=== PATIENT | female | born 1995 | race Caucasian/White ===

== ENCOUNTER → 2021-08-29 10:21 | Outpatient (CLI) | payer OTHER, SELFPAY ==
--- NOTE | 2021-08-29 10:23 | DI.US.S_ITS ---
PROCEDURE: US PELVIC COMPLETE INDICATIONS: LLQ PAIN TECHNIQUE: Real-time scanning was performed of the pelvic organs, with image documentation. Additional endovaginal scanning was necessary due to incomplete visualization of the adnexal and endometrial structures by transabdominal scanning. COMPARISON: [facility], US, US ABDOMEN COMPLETE, 08/29/2021, 10:27. FINDINGS: Uterus: Uterus is retroverted and normal in size at 7.2 x 4.1 x 5.3 cm. The myometrium is homogeneous. The endometrium measures 8 mm combined thickness. Ovaries: The right ovary measures 4.6 x 1.8 x 2.6 cm. The left ovary measures 3.9 x 2.5 x 2.2 cm. The ovaries have a normal sonographic appearance. More than 12 follicles can be seen involving each ovary. No adnexal masses are seen. Normal appearing arterial waveforms are confirmed to each ovary. Other: No pathologic free abdominal or pelvic fluid. No focal abnormality of the left lower quadrant can be seen. IMPRESSION: More than 12 follicles can be seen involving each ovary, which is consistent with polycystic ovarian syndrome. We strive to produce accurate, complete, and clear reports of imaging services. To assist us in improving patient care, this report was composed using standard report templates and voice recognition software. Therefore, it may contain abnormal punctuation, insertions and/or omissions. Occasional wrong-word or sound-alike substitutions may occur. Though we review the report and make efforts to correct it, we do recommend that the report be read carefully in proper context to recognize any text inaccuracies. Dictated by: William Vázquez M.D. on 08/29/2021 at 12:10 Approved by: William Vázquez M.D. on 08/29/2021 at 12:12
--- NOTE | 2021-08-29 10:23 | DI.US.S_ITS ---
PROCEDURE: US ABDOMEN COMPLETE INDICATIONS: LLQ PAIN; HERNIA VS GASTROINTESTINAL TECHNIQUE: Real-time scanning was performed of the abdominal and retroperitoneal organs, with image documentation. COMPARISON: [facility], US, US PELVIC COMPLETE, 08/29/2021, 10:45. FINDINGS: Liver: Liver is normal in size and homogeneous in echotexture. Gallbladder: Nondilated. No stones or sludge. Normal gallbladder wall thickness. No pericholecystic fluid. Negative sonographic Valdivia's sign. Biliary ducts: Intrahepatic bile ducts are non-dilated. Extrahepatic bile duct caliber measures 5 mm. Normal is 6-7 mm or less in diameter, or 10 mm or less post-cholecystectomy. Pancreas: Visualized portions of the pancreas are sonographically normal. Spleen: Spleen is normal in size and homogeneous in echotexture. Kidneys: Kidneys are normal in size and echotexture. Right kidney measures 13 cm long; left kidney measures 12.9 cm long. No hydronephrosis or nephrolithiasis. No solid masses. Aorta: Visualized aorta is normal in caliber at less than 3 cm. Iliacs: Proximal common iliac arteries are normal in caliber at less than 2.5 cm. IVC: Intrahepatic inferior vena cava is patent. Miscellaneous: No free abdominal fluid. IMPRESSION: 1. No acute cholecystitis. No gallstones. 2. No hydronephrosis. Please see separately dictated pelvic ultrasound. Dictated by: Darwin Noland M.D. on 08/29/2021 at 12:21 Approved by: Darwin Noland M.D. on 08/29/2021 at 12:23
== END ==
PROVIDERS: PCP Registered Nurse Diabetes Educator; Referring Provider Registered Nurse Diabetes Educator; Visit Provider Registered Nurse Diabetes Educator
DX: R10.32 Left lower quadrant pain (principal)
CPT/HCPCS: 76700; 76830; 76856

== ENCOUNTER 2022-01-02 17:06 | Emergency (ER) | payer OTHER, SELFPAY ==
[2022-01-02 17:18] VITALS: BP 154/100; PULSE 104; RESP 18; TEMP 37.1; O2SAT 97; BMI 26.4
--- NOTE | 2022-01-02 17:25 | DI.US.S_ITS ---
PROCEDURE: US OB <= 14 WEEKS FETUS INDICATIONS: 4 weeks preg, vaginal bleeding TECHNIQUE: Real-time scanning was performed of the fetus and maternal pelvic organs, with image documentation. Endovaginal scanning was also performed to better visualize the fetus and maternal ovaries. COMPARISON: None. FINDINGS: Retroverted uterus measures 9.2 x 4.3 x 4.7 cm. Endometrial thickness is 8.1 mm. No evidence of intrauterine . Right and left ovaries measure 3.5 x 2.0 x 2.5 cm and 3.2 x 1.4 x 1.6 cm respectively. There is a hypoechoic structure in the right ovary measuring 1.8 x 1.7 cm with peripheral vascularity IMPRESSION: 1. No evidence of intrauterine . Differential possibilities include normal early , missed and nonvisualized ectopic . 2. Probable left ovarian hemorrhagic cyst, 1.8 cm Approved by: Richard Nagy M.D. on 01/02/2022 at 17:44
--- NOTE | 2022-01-02 17:38 | ED.FEMALEGU ---
HPI - Female Genitourinary <EDNA Jiménez - Last Filed: 01/02/22 19:04> General Chief complaint: Vaginal Bleeding Stated complaint: Unsure if miscarriage, ~4 weeks Time Seen by Provider: 01/02/22 17:12 Source: patient Mode of arrival: Ambulatory History of Present Illness HPI Narrative: 26-year-old female presents to the emergency department with vaginal bleeding and uterine cramps x1 day. Patient reports that she was having lower abdominal and lower back cramping last evening and started having vaginal bleeding with clots this morning. Patient last menstrual was November 24, 2021, began ovulating around December 15 and reports breast tenderness for the following 10 days. This is her 1st . Patient completed multiple home tests over the last 2 weeks along with this morning, and all positive. The patient is tearful that her may be ending. is at the bedside. Related Data Home Medications Medication Instructions Recorded Confirmed cetirizine 10 mg capsule 10 mg PO DAILY 04/26/20 09/13/21 cholecalciferol (vitamin D3) 125 125 mcg PO DAILY 04/26/20 07/18/21 mcg (5,000 unit) capsule Allergies Allergy/AdvReac Type Severity Reaction Status Date / Time venom-wasp Allergy Intermediate swelling Verified 01/02/22 17:24 Review of Systems <EDNA Jiménez - Last Filed: 01/02/22 19:04> Review of Systems Narrative: Narrative: GENERAL: Denies chills, fatigue, fever, sweats. See HPI HEENT: Denies sinus pain, ear pain, sore throat, difficulty swallowing, dizziness. RESPIRATORY: Denies dyspnea, cough, wheezing, sputum. CARDIOVASCULAR: Denies chest pain, palpitations, edema. GASTROINTESTINAL: Denies nausea, vomiting, diarrhea, constipation. Endorses lower abdominal and lower back cramping. Endorses vaginal bleeding with clots. : Denies dysuria, frequency, incontinence, hematuria, urinary retention, flank pain. MSK: Denies weakness, joint pain, or bony pain. SKIN: Denies rash, skin lesions, or pruritis. NEUROLOGIC: Denies weakness, dizziness, headache, numbness, confusion. PSYCHIATRIC: No concerning psychosocial issues. Patient History <EDNA Jiménez Last Filed: 01/02/22 19:04> Medical History Chronic GERD Migraine with aura alcohol intake frequency: holidays/special occasions only Substance Use Type: does not use Exam <EDNA Jiménez - Last Filed: 01/02/22 19:04> Narrative Exam Narrative: Exam Narrative: GENERAL: This is a well-nourished, well-developed patient, in no acute distress HEAD: Atraumatic. Normocephalic. EYES: Pupils equal round and reactive. Extraocular motions intact. No scleral icterus, injection or drainage. ENT: Nose without bleeding, purulent drainage. Throat without erythema, tonsillar hypertrophy or exudate. Airway patent. NECK: Trachea midline. No JVD or lymphadenopathy. Nontender. CARDIOVASCULAR: Regular rate and rhythm without murmurs, peripheral pulses intact, cap refill <2 sec. RESPIRATORY: Breath sounds equal and clear bilaterally. No wheezes, rales, or rhonchi. No cough. No increased respiratory effort. No accessory muscle use. GASTROINTESTINAL: Abdomen soft, non-tender, nondistended without guarding or rebound. No suprapubic pain. No active cramping. No adnexal tenderness. MSK: Moves all extremities. Normal range of motion, no clubbing or edema. Neurovascularly intact. NEURO: A&O x 3. SKIN: Warm, dry, no rashes or lesions noted. Initial Vital Signs Initial Vital Signs: Vital Signs Temperature 98.7 F 01/02/22 17:18 Pulse Rate 104 H 01/02/22 17:18 Respiratory Rate 18 01/02/22 17:18 Blood Pressure 154/100 H 01/02/22 17:18 Pulse Oximetry 97 01/02/22 17:18 Oxygen Delivery Method 01/02/22 17:18 Reviewed. Attribute blood pressure and heart rate to anxiety related to possible miscarriage. <Sadia Carvalho DO - Last Filed: 01/04/22 09:52> Initial Vital Signs Initial Vital Signs: Vital Signs Temperature 98.7 F 01/02/22 17:18 Pulse Rate 104 H 01/02/22 17:18 Respiratory Rate 18 01/02/22 17:18 Blood Pressure 154/100 H 01/02/22 17:18 Pulse Oximetry 97 01/02/22 17:18 Oxygen Delivery Method 01/02/22 17:18 Course <EDNA Jiménez - Last Filed: 01/02/22 19:04> Orders Ordered: ED Orders 01/02/22 17:25 US OB <= 14 weeks fetus Stat 01/02/22 17:34 ABO RH Type Stat Complete Blood Count AUTO DIFF Stat Comprehensive Metabolic Panel Stat HCG Quantitative /Beta subunit Stat Vital Signs Vital signs: Vital Signs - 8 hr 01/02/22 17:18 Temperature 98.7 F Pulse Rate 104 H Respiratory Rate 18 Blood Pressure 154/100 H Pulse Oximetry 97 Oxygen Delivery Method Room Air <Sadia Carvalho DO - Last Filed: 01/04/22 09:52> Orders Ordered: ED Orders 01/02/22 17:25 US OB <= 14 weeks fetus Stat 01/02/22 17:34 ABO RH Type Stat Complete Blood Count AUTO DIFF Stat Comprehensive Metabolic Panel Stat HCG Quantitative /Beta subunit Stat Vital Signs Vital signs: Vital Signs - 8 hr 01/02/22 17:18 Temperature 98.7 F Pulse Rate 104 H Respiratory Rate 18 Blood Pressure 154/100 H Pulse Oximetry 97 Oxygen Delivery Method Room Air MDM - Female Genitourinary <EDNA Jiménez - Last Filed: 01/02/22 19:04> Differential Diagnosis Differential diagnosis: Likely other (Threatened ) Lab Data Result diagrams: 01/02/22 17:34 01/02/22 17:34 Labs: Lab Results 01/02/22 01/02/22 01/02/22 Range/Units 17:34 17:34 17:34 WBC 9.6 (4.5-11.0) X10^3/uL RBC 4.77 (4.0-5.2) X10^6/uL Hgb 14.5 (12.0-16.0) g/dL Hct 42.3 (36-46) % MCV 88.8 (80-100) fL MCH 30.3 (26-34) PG MCHC 34.2 (30-36) % RDW 13.1 (11.6-14.8) % Plt Count 265 (150-400) X10^3/uL Neut % (Auto) 65.9 (50-75) % Lymph % (Auto) 25.9 (25-40) % Morrill % (Auto) 6.3 (3-14) % Eos % (Auto) 0.9 L (2-4) % Baso % (Auto) 1.0 (0-2) % Neut # (Auto) 6400 (4353-5246) /uL Lymph # (Auto) 2500 (3346-0955) /uL Morrill # (Auto) 600 (0-900) /uL Eos # (Auto) 100 (0-450) /uL Baso # (Auto) 100 (0-100) /uL Sodium 139 (137-145) mmol/L Potassium 4.3 (3.4-5.1) mmol/L Chloride 104 (98-107) mmol/L Carbon Dioxide 27 (22-32) mmol/L BUN 12 (7-17) mg/dL Creatinine 0.71 (0.52-1.04) mg/dL Estimated GFR > 60 (>60) mL/min BUN/Creatinine Ratio 16.9 (6-22) Glucose 93 (70-100) mg/dL Calcium 9.2 (8.4-10.2) mg/dL Total Bilirubin 0.8 (0.2-1.3) mg/dL AST 40 H (14-36) IU/L ALT 16 (<35) IU/L Alkaline Phosphatase 51 (38-126) U/L Total Protein 8.8 H (6.3-8.2) g/dL Albumin 5.0 (3.5-5.0) g/dL Globulin 3.8 (1.7-4.1) g/dL Albumin/Globulin Ratio 1.3 (1.0-2.8) HCG, Quant 3.4 mIU/mL Blood Type O Positive Imaging Data US - OB: Radiologist's Impression: [address] [address] Ultrasound Report Signed Patient: Rowdy Clayton MR#: [id number] : 1995 Acct:[id number] Age/Sex: 26 / F Date of Service: 01/02/22 Loc: ED Accession Number: [id number] ?? Procedure: US OB <= 14 weeks fetus Ordering Provider: Eyad Connor PROCEDURE:? US OB <= 14 WEEKS FETUS ? INDICATIONS:? 4 weeks preg, vaginal bleeding ? TECHNIQUE:? Real-time scanning was performed of the fetus and maternal pelvic organs, with image documentation.? Endovaginal scanning was also performed to better visualize the fetus and maternal ovaries.? ? COMPARISON:? None. ? FINDINGS:? ? Retroverted uterus measures 9.2 x 4.3 x 4.7 cm.? Endometrial thickness is 8.1 mm.? No evidence of intrauterine . ? Right and left ovaries measure 3.5 x 2.0 x 2.5 cm and 3.2 x 1.4 x 1.6 cm respectively.? There is a hypoechoic structure in the right ovary measuring 1.8 x 1.7 cm with peripheral vascularity ? IMPRESSION:? ? 1. No evidence of intrauterine .? Differential possibilities include normal early , missed and nonvisualized ectopic . ? 2. Probable left ovarian hemorrhagic cyst, 1.8 cm ? Approved by: Richard Nagy M.D. on 01/02/2022 at 17:44? MDM Narrative Medical decision making narrative: 26-year-old female that presents to the emergency department with threatened . HCG quant was 3.4. Ultrasound reveals no intrauterine . Informed patient and of the results and were received well. Instructed patient to follow up with her family doctor tomorrow for possible repeat HCG quant ensure levels trending downwards. Discussed plan of care with patient and , who were agreeable with course of action. <Sadia Carvalho, DO - Last Filed: 01/04/22 09:52> Lab Data Labs: Lab Results 01/02/22 01/02/22 01/02/22 Range/Units 17:34 17:34 17:34 WBC 9.6 (4.5-11.0) X10^3/uL RBC 4.77 (4.0-5.2) X10^6/uL Hgb 14.5 (12.0-16.0) g/dL Hct 42.3 (36-46) % MCV 88.8 (80-100) fL MCH 30.3 (26-34) PG MCHC 34.2 (30-36) % RDW 13.1 (11.6-14.8) % Plt Count 265 (150-400) X10^3/uL Neut % (Auto) 65.9 (50-75) % Lymph % (Auto) 25.9 (25-40) % Morrill % (Auto) 6.3 (3-14) % Eos % (Auto) 0.9 L (2-4) % Baso % (Auto) 1.0 (0-2) % Neut # (Auto) 6400 (7970-8266) /uL Lymph # (Auto) 2500 (0302-0000) /uL Morrill # (Auto) 600 (0-900) /uL Eos # (Auto) 100 (0-450) /uL Baso # (Auto) 100 (0-100) /uL Sodium 139 (137-145) mmol/L Potassium 4.3 (3.4-5.1) mmol/L Chloride 104 (98-107) mmol/L Carbon Dioxide 27 (22-32) mmol/L BUN 12 (7-17) mg/dL Creatinine 0.71 (0.52-1.04) mg/dL Estimated GFR > 60 (>60) mL/min BUN/Creatinine Ratio 16.9 (6-22) Glucose 93 (70-100) mg/dL Calcium 9.2 (8.4-10.2) mg/dL Total Bilirubin 0.8 (0.2-1.3) mg/dL AST 40 H (14-36) IU/L ALT 16 (<35) IU/L Alkaline Phosphatase 51 (38-126) U/L Total Protein 8.8 H (6.3-8.2) g/dL Albumin 5.0 (3.5-5.0) g/dL Globulin 3.8 (1.7-4.1) g/dL Albumin/Globulin Ratio 1.3 (1.0-2.8) HCG, Quant 3.4 mIU/mL Blood Type O Positive Discharge Plan Departure Patient Disposition: Home Clinical Impression: Vaginal bleeding, Miscarriage Instructions: DI for Miscarriage Activity Restrictions/Additional Instructions: *You have been diagnosed with vaginal bleeding/miscarriage. Your ultrasound reveals no intrauterine and your blood test reveals a hCG quant level of 3.4, (less than 5 is considered not ). You may take Tylenol or ibuprofen as needed for any further cramping. Please follow-up with your family doctor tomorrow to schedule a repeat hCG quant. *What to do: *Please continue to take your regular medications as directed. [ ] New medication prescriptions sent to your pharmacy: [ ] [ ] New medication written as a paper prescription [x ] No new medications given *Please follow up with your primary care provider in 2-3 days, call for an appointment. Let them know you were seen in the Emergency Department and that we ask that you be seen in follow up. We will electronically transmit a record of today's note if your PCP is in our system *If you do not have a primary care provider please contact the [facility] Resource line at [phone]. They will ask some questions about your medical history and help get you set up with a doctor in the community. ? Return to ER if you should have any new, worsening or concerning symptoms, such as worsening pain, severe headache, confusion, chest pain, difficulty breathing, fever greater than 101 F, shaking chills, persistent vomiting to the point that you cannot drink fluids, or other new or worsening symptoms. Prescriptions: No Action cetirizine 10 mg capsule 10 mg PO DAILY cholecalciferol (vitamin D3) 125 mcg (5,000 unit) capsule 125 mcg PO DAILY Referrals: Gumaro Goldsmith ARNP [Primary Care Provider] - Visit Report Forms: Patient Portal/API <Sadia Carvalho DO - Last Filed: 01/04/22 09:52> Cosign ED Attending Winsomeature Attestation: I was immediately available in the department for consultation. Documentation has been reviewed. I agree with assessment and plan.
[2022-01-02 17:52] LABS: Add Manual Diff / Slide Review NO; Basophils Absolute Auto 100 /uL (0-100); Eosinophils Absolute Auto 100 /uL (0-450); Eosinophils Percent Auto 0.9 % (2-4); Hematocrit 42.3 % (36-46); Hemoglobin 14.5 g/dL (12.0-16.0); Lymphocytes Absolute Auto 2500 /uL (1100-4500); Lymphocytes Percent Auto 25.9 % (25-40); Mean Corpuscular HGB Conc 34.2 % (30-36); Mean Corpuscular Hemoglobin 30.3 PG (26-34); Mean Corpuscular Volume 88.8 fL (80-100); Monocytes Absolute Auto 600 /uL (0-900); Monocytes Percent Auto 6.3 % (3-14); Neutrophils Absolute Auto 6400 /uL (1500-7000); Neutrophils Percent Auto 65.9 % (50-75); Platelet Count 265 X10^3/uL (150-400); Red Blood Cell Count 4.77 X10^6/uL (4.0-5.2); Red Cell Distribution Width 13.1 % (11.6-14.8); White Blood Cell Count 9.6 X10^3/uL (4.5-11.0)
[2022-01-02 17:57] LABS: Alanine Aminotransferase 16 IU/L (<35); Albumin Globulin Ratio 1.3 (1.0-2.8); Alkaline Phosphatase 51 U/L (38-126); Aspartate Aminotransferase 40 IU/L (14-36); BUN Creatinine Ratio 16.9 (6-22); Bilirubin Total 0.8 mg/dL (0.2-1.3); Blood Urea Nitrogen 12 mg/dL (7-17); Calcium 9.2 mg/dL (8.4-10.2); Carbon Dioxide 27 mmol/L (22-32); Chloride 104 mmol/L (98-107); Estimated Glomerular Filt Rate > 60 mL/min (>60); Globulin 3.8 g/dL (1.7-4.1); Glucose 93 mg/dL (70-100); Potassium 4.3 mmol/L (3.4-5.1); Sodium 139 mmol/L (137-145); Total Protein 8.8 g/dL (6.3-8.2)
[2022-01-02 18:09] LABS: HEMOLYSIS 129 (0-50)
[2022-01-02 18:13] LABS: HCG Quantitative /Beta subunit 3.4 mIU/mL
[2022-01-02 19:17] VITALS: BP 123/83; PULSE 66; O2SAT 100
== END 2022-01-02 19:19 | disposition home or self-care (01) ==
PROVIDERS: Emergency Provider Registered Nurse; PCP Registered Nurse Diabetes Educator
DX: O03.9 Complete or unspecified spontaneous abortion without complication (principal)
CPT/HCPCS: 76801; 76830; 80053; 84702; 85025; 86900; 86901; 99283; 99284

== ENCOUNTER → 2022-01-09 16:43 | Outpatient (CLI) | payer OTHER, SELFPAY ==
[2022-01-09 17:47] LABS: HCG Quantitative /Beta subunit < 2.4 mIU/mL
== END ==
PROVIDERS: PCP Registered Nurse Diabetes Educator; Referring Provider Registered Nurse Diabetes Educator; Visit Provider Registered Nurse Diabetes Educator
DX: O03.9 Complete or unspecified spontaneous abortion without complication (principal)
CPT/HCPCS: 36415; 84702

== ENCOUNTER → 2022-02-09 14:28 | Outpatient (CLI) | payer OTHER, SELFPAY ==
[2022-02-09 16:07] LABS: Pregnancy Test Serum,Qual Positive (Negative)
== END ==
PROVIDERS: PCP Registered Nurse Diabetes Educator; Referring Provider Registered Nurse Diabetes Educator; Visit Provider Registered Nurse Diabetes Educator
DX: Z32.01 Encounter for pregnancy test, result positive (principal)
CPT/HCPCS: 36415; 84703

== ENCOUNTER → 2022-06-08 14:18 | Outpatient (CLI) | payer OTHER, SELFPAY ==
--- NOTE | 2022-06-08 | DI.US.S_ITS ---
PROCEDURE: US OB >= 14 WEEKS FETUS INDICATIONS: 20 WK ANATOMY SCAN OUTSIDE/PRIOR DATING DATA: Last menstrual period (LMP): 01/02/2022. LMP-based estimated date of delivery (IRMA): 10/09/2022. First dating scan (date and location): 06/08/2022. Estimated date of delivery (IRMA) from first dating scan: . The calculations are made using the working IRMA of . TECHNIQUE: Real-time scanning was performed of the fetus, with image documentation and biometric measurements. Endovaginal scanning: Not performed. COMPARISON: [facility], , OB <= 14 WEEKS FETUS, 01/02/2022, 17:37. FINDINGS: General: A single living intrauterine gestation is present. Presentation: Vertex. Placenta: Placental position is , without previa. Amniotic fluid index: 11.7 cm, normal range is 5-24 cm. Single deepest vertical pocket is 3.8 cm. heart rate: 157 beats per minute. Maternal cervical canal: 3.8 cm long. Normal lower limit is 2.5 cm. biometrics: Biparietal diameter: 21 weeks 2 days Head circumference: 20 weeks 5 days Abdominal circumference: 21 weeks 4 days Femur length: 20 weeks 5 days Clinically estimated gestational age: 212weeks 3 days Composite gestational age from present scan: 21 weeks 1 day Estimated weight and percentile: 410 gm; percentile not available. Anatomic survey: Neuro: Ventricles are non-dilated at less than 10 mm. Cisterna magna is normal at 3-11 mm. Cerebellum is normal in size and morphology. Nuchal skin fold: Normal at less than 6 mm between 14-21 weeks gestational age. Face: Nose and lips, facial profile are normal. Spine: No evidence for spina bifida. Heart: 4-chambered heart is present, with normal ventricular outflow tracts. Diaphragm: Diaphragm is intact. Stomach: Left-sided stomach is present, which appears distended. Kidneys: No hydronephrosis. Normal is less than 5 mm in 2nd trimester, less than 7 mm in 3rd trimester. Cord: 3-vessel cord has orthotopic insertion. Bladder: Normal in size. Extremities: All 4 extremities identified. IMPRESSION: 1. A single living intrauterine gestation with an estimated gestational age of 21 weeks 1 day corresponding to ultrasound IRMA 10/18/2022. 2. Distended stomach of uncertain clinical significance; otherwise normal anatomic survey. We strive to produce accurate, complete, and clear reports of imaging services. To assist us in improving patient care, this report was composed using standard report templates and voice recognition software. Therefore, it may contain abnormal punctuation, insertions and/or omissions. Occasional wrong-word or sound-alike substitutions may occur. Though we review the report and make efforts to correct it, we do recommend that the report be read carefully in proper context to recognize any text inaccuracies. Dictated by: Braydon Borrego M.D. on 06/08/2022 at 18:49 Approved by: Braydon Borrego M.D. on 06/09/2022 at 7:51
== END ==
PROVIDERS: PCP Registered Nurse Diabetes Educator; Referring Provider Advanced Practice Midwife; Visit Provider Advanced Practice Midwife
DX: Z34.92 Encounter for supervision of normal pregnancy, unspecified, second trimester (principal); Z3A.21 21 weeks gestation of pregnancy
CPT/HCPCS: 76811

== ENCOUNTER → 2022-07-04 15:46 | Outpatient (CLI) | payer OTHER, SELFPAY ==
--- NOTE | 2022-07-04 15:47 | DI.US.S_ITS ---
PROCEDURE: US OB LIMITED INDICATIONS: F/U TO ANATOMY SCAN OUTSIDE/PRIOR DATING DATA: Last menstrual period (LMP): 01/02/2022. LMP-based estimated date of delivery (IRMA): 10/09/2022. First dating scan (date and location): 06/08/2022. Estimated date of delivery (IRMA) from first dating scan: 10/18/2022. The calculations are made using the ultrasound IRMA of 10/18/2022. TECHNIQUE: Real-time scanning was performed of the fetus, with image documentation. Endovaginal scanning: Not performed COMPARISON: [facility], , US OB >= 14 WEEKS FETUS, 06/08/2022, 14:28. FINDINGS: A single living intrauterine gestation is present. Presentation: Vertex. Placenta: Placental position is posterior, without previa. Amniotic fluid index: 13.8 cm, normal range is 5-24 cm. Single deepest vertical pocket is 4.3 cm. heart rate: 139 beats per minute. Maternal cervical canal: 3.9 cm long. Normal lower limit is 2.5 cm. Clinically estimated gestational age: 24 weeks 6 days This study was performed because on the previous study, the stomach appeared prominent. On the current study, the stomach is normal in size. IMPRESSION: Unremarkable appearance of the stomach. Otherwise unremarkable limited ultrasound of a fetus which is at the end of the 2nd trimester. Dictated by: Vincent Stoner M.D. on 07/04/2022 at 19:47 Approved by: Vincent Stoner M.D. on 07/04/2022 at 19:50
== END ==
PROVIDERS: PCP Registered Nurse Diabetes Educator; Referring Provider Nurse Practitioner Obstetrics & Gynecology; Visit Provider Nurse Practitioner Obstetrics & Gynecology
DX: O28.3 Abnormal ultrasonic finding on antenatal screening of mother (principal); Z3A.24 24 weeks gestation of pregnancy
CPT/HCPCS: 76815

== ENCOUNTER 2022-10-24 03:18 | Inpatient (IN) | payer OTHER, SELFPAY ==
[2022-10-24 03:40] VITALS: BP 114/70
--- NOTE | 2022-10-24 03:56 | PM.OBHP.1 ---
OB HPI Date/Time Date of admission: 10/24/22 Date Patient Seen: 10/24/22 Time Patient Seen: 03:56 History of Present Condition Chief complaint: Labor/ induction : 2 Para: 0 Estimated Date of Delivery: 10/20/22 Estimated Gestational Age (weeks): 40w4d Narrative: Rowdy Clayton is a 27 year old female at 40w4d by conception date confirmed by 7 week ultrasound. She had a vasques catheter placed for elective IOL at approx 1630 on 10/23/22 in the office. She woke approx 0030 with a contraction, rupture of membranes (clear fluid) and significant movement. Contractions have been consistent, q 4-8 minutes until approx 0230, when they became every 3-4 minutes; they also became more intense at that time. She is currently coping well and feeling contractions start in her lower abdomen and wrap around to her hips and low back. The back pain is getting intense. Armond contacted [facility] at 0230 to check in and it was recommended to come in at that time as she is GBS positive. This is a very desired . History of SAB x 1. Rowdy is here with her , Armond, who is providing good support. She is open to trying the tub, nitrous and epidural, depending on how things go. She plans to breastfeed. Indications Indication for induction OB: other (elective IOL r/to PCS move scheduled) History of Present care: good care, initiated at week # (7), number of visits (11) and pounds weight gain (50) Dating criteria: other (Based on likely conception date and confirmed by 7w5d ultrasound) Ultrasounds: normal 1st trimester US and normal mid trimester US Obstetrical complications: none Medical complications: gastrointestinal (chronic GERD; chronic LLQ pain with unknown cause) and neurological (history of migraine headaches) Preadmission Labs Blood type: O (+) positive -: Antibody screen: negative, Cystic fibrosis screen: unknown, GBS status: positive, HBsAG: negative, HIV: negative, HSV 1: unknown (patient denies hx HSV outbreaks), HSV 2: unknown and RPR/VDLR: negative -: Chlamydia screen: not detected and Gonorrhea screen: not detected -: Rubella: immune and Varicella: immune HCT: 37.2 (27 weeks) HCAB: negative PAP: Normal (2020 per patient report) Cell-free DNA: Negative, XX 1 hr GTT: 105 Prior (ies) History: SAB x 1 Evaluation Evaluation Baseline heart rate: 135 Variability: Moderate (11-25) monitor accelerations: Present Monitor Decelerations: Absent Contraction Frequency (minutes): 3 Uterine Contraction Intensity: Moderate Status: Category l Comments: SVE at time of vasques placement 2/80/-2. Exam not performed at this time r/to ROM. Fetus vertex and OP by bedside ultrasound on admission. [facility] Medical History (Updated 10/24/22 @ 04:36 by Fern Abebe CNM, [facility]) Chronic GERD IUD (intrauterine device) in place Migraine with aura Seasonal allergies Stress fracture of lumbar vertebra Supervision of normal first in third trimester Surgical History History of tonsillectomy and adenoidectomy Family History Mother Endometriosis Depression GERD (gastroesophageal reflux disease) Sister PCOS (polycystic ovarian syndrome) OCD (obsessive compulsive disorder) Grandmother Cancer Social History (Updated 10/24/22 @ 04:37 by Fern Abebe CNM, EDNA) marital status: household members: spouse lives independently: Yes caregiver/support person: No housing: house education level: master's degree occupational status: employed current occupational exposures/hazards: No 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: [employer] Smoking Status: Never smoker Meds Home Medications and Allergies Home Medications Medication Instructions Recorded Confirmed Type cholecalciferol (vitamin D3) 125 125 mcg PO DAILY 04/26/20 10/24/22 History mcg (5,000 unit) capsule Lactobacillus acidophilus 10 20,000 mmu cells DAILY 10/24/22 10/24/22 History billion cell capsule (Probiotic) aluminum hydrox-magnesium carb 160 tab PRN PRN Gastric Reflux 10/24/22 History mg-105 mg chewable tablet loratadine 10 mg tablet 10 mg DAILY Allergies 10/24/22 10/24/22 History [id number] 1 mg tab PO 10/24/22 History tablet Allergies Allergy/AdvReac Type Severity Reaction Status Date / Time venom-wasp Allergy Intermediate swelling Verified 01/02/22 17:24 Review of Systems Review of Systems Narrative: Negative except as mentioned in HPI. OB Exam Vital signs Blood Pressure: 114/70 Pulse Rate: 93 Temperature: 97.0 F Resp Effort & Inspection: normal respiratory effort and able to speak in complete sentences Auscultation: clear to auscultation bilaterally Cardio Rate: regular rate Rhythm: regular rhythm Heart Sounds: S1 normal and S2 normal Extremities Lower extremity: Yes normal to inspection Presentation: vertex (and OP; confirmed by bedside ultrasound) Estimated Weight (lbs): 8 Amniotic Fluid: clear (leaking since 2910/24/22) Objective Labs 10/24/22 04:35 Assessment and Plan Assessment and Plan Assessment and Plan narrative: at 40w4d by conception/early ultrasound GBS positive Rh positive Early labor FHR Cat 1 Rupture of membranes x 4 hours History of migraine with aura History of GERD History of unexplained LLQ pain Varicose veins History of stress fracture in lumbar spine Plan: 1. Admit to L&D 2. GBS prohylaxis don with ampicillin per protocol 3. Comfort measures for labor as desired 4. Anticipate
[2022-10-24 04:54] LABS: Add Manual Diff / Slide Review NO; Basophils Absolute Auto 100 /uL (0-100); Basophils Percent Auto 0.7 % (0-2); Eosinophils Absolute Auto 100 /uL (0-450); Eosinophils Percent Auto 0.6 % (2-4); Hematocrit 35.1 % (36-46); Lymphocytes Absolute Auto 1500 /uL (1100-4500); Lymphocytes Percent Auto 10.9 % (25-40); Mean Corpuscular HGB Conc 34.1 % (30-36); Mean Corpuscular Hemoglobin 30.4 PG (26-34); Mean Corpuscular Volume 89.1 fL (80-100); Monocytes Absolute Auto 900 /uL (0-900); Monocytes Percent Auto 6.5 % (3-14); Neutrophils Absolute Auto 11500 /uL (1500-7000); Neutrophils Percent Auto 81.3 % (50-75); Platelet Count 227 X10^3/uL (150-400); Red Blood Cell Count 3.94 X10^6/uL (4.0-5.2); Red Cell Distribution Width 14.1 % (11.6-14.8); White Blood Cell Count 14.1 X10^3/uL (4.5-11.0)
[2022-10-24 04:59] VITALS: BP 114/70; PULSE 93; TEMP 36.1
[2022-10-24] MEDS: AMPICILLIN 1,000 MG in SODIUM CHLORIDE 0.9% 100 ML 200 MG IV ×2 (08:50→12:38)
--- NOTE | 2022-10-24 09:19 | P.PCN_ITS ---
Regional Block Pre-procedure PMH/ROS narrative: term labor, no complications, no sig PMH. ASA Class: II Labs: Hct 35.1 % (36-46) L 10/24/22 04:35 Plt Count 227 X10^3/uL (150-400) 10/24/22 04:35 Medications: Current Medications Generic Name Dose Route Start Last Admin Trade Name Freq PRN Reason Stop Dose Admin Carboprost Tromethamine 250 mcg 10/24/22 03:52 Carboprost 250 Mcg/Ml Ampul IM Q90M PRN Bleeding Fentanyl 100 mcg 10/24/22 03:52 Fentanyl 100 Mcg/2 Ml Inj IV Q1H PRN Pain, Severe (7-10) Oxytocin/Lactated Ringer's 30 unit in 500 mls @ 200 mls/hr 10/24/22 03:52 Oxytocin Premix IV CONT PRN Bleeding Protocol Tranexamic Acid 1,000 mg/ 100 mls @ 200 mls/hr 10/24/22 03:52 Sodium Chloride IV NOW PRN Bleeding Ampicillin Sodium 1,000 mg/ 100 mls @ 200 mls/hr 10/24/22 08:00 10/24/22 08:50 Sodium Chloride IV 200 mls/hr Q4H JYOTI Administration Oxytocin/Lactated Ringer's 30 unit in 500 mls @ 2 mls/hr 10/24/22 04:00 Oxytocin Premix IV TITRATE JYOTI Protocol 2 MILLIUNIT/MIN Lactated Ringer's 1,000 mls @ 100 mls/hr 10/24/22 04:00 Lactated Ringers IV CONT JYOTI Lidocaine HCl 20 ml 10/24/22 03:52 Lidocaine 1% 20 Ml INJ INTRA-OP PRN Post Delivery Methylergonovine Maleate 0.2 mg 10/24/22 03:52 Methylergonovine 0.2 Mg Tablet PO Q6HR PRN Heavy Bleeding Methylergonovine Maleate 0.2 mg 10/24/22 03:52 Methylergonovine 0.2 Mg/Ml Vial IM NOW PRN Bleeding Misoprostol 800 mcg 10/24/22 03:52 Misoprostol 200 Mcg Tablet MS NOW PRN Bleeding Misoprostol 400 mcg 10/24/22 03:52 Misoprostol 200 Mcg Tablet SL NOW PRN Bleeding Naloxone HCl 0.2 mg 10/24/22 03:52 Naloxone 0.4 Mg/Ml Vial IV Q2MIN PRN Opiate Reversal Ondansetron HCl 8 mg 10/24/22 03:52 Ondansetron 4 Mg/2 Ml Inj IV Q4HR PRN Nausea And Vomiting Oxytocin 10 unit 10/24/22 03:52 Oxytocin 10 Unit/Ml Vial IM NOW PRN Bleeding Allergies: Allergies Allergy/AdvReac Type Severity Reaction Status Date / Time venom-wasp Allergy Intermediate swelling Verified 01/02/22 17:24 Procedure Insertion date: 10/24/22 Insertion time: 09:30 Prep/Local: betadine x3 and 1% lidocaine Interspace: L2-3 Patient position: sitting Needle: 18 gauge Careers360 (CSE: 27g Pencan through Hustead, clear CSF. 2.5mg MPF bupiv) Loss of resistance with: saline RU at (cm): 5 Catheter placed at SKIN (cm): 11 Catheter in SPACE (cm): 6 Insertion: No CSF, No Blood, No Paresthesia with insertion, No Paresthesia with injection and No Test dose reaction Initial Medications TEST DOSE time: 09:32 TEST DOSE: 1.5% lidocaine with epinephrine 1:200k (mL): 3 BOLUS DOSE time: 09:35 BOLUS DOSE (mL): 4 BOLUS DOSE med: other (infusate) Infusion INFUSION: 0.125% bupivacaine and with fentanyl 2 mcg/mL Initial rate (mL/hr): 8 Subsequent interventions: 8mL/h, PCEA 4mL q15m Post-procedure Anesthesia time START: 09:21 Anesthesia time END: 13:55 Post-procedure Anesthesia Assessment: Yes CV function: HR/BP stable, Yes Resp function: RR/sat/airway adequate, Yes Post-op hydration adequate, Yes Pain control adequate, Yes Nausea & vomiting absent, Yes Temperature > 36 C, Yes Mental status appropriate and No Anesthesia complications
[2022-10-24] MEDS: FENT 2MCG/ML BUPIV 0.125% EPI 200 MCG/100 ML PLAST..BAG 6 MCG EPIDURAL (09:45)
--- NOTE | 2022-10-24 09:49 | PM.OBPNLAB ---
Date/Time Date Patient Seen: 10/24/22 Time Patient Seen: 08:30 Pain Control Pain control: tolerating well and epidural (and spinal just performed at approx 0930) Comments: Prior to epidural working hard and using nitrous oxide for pain management. Pelvic Exam Dilation (cm): 5.5 Effacement (%): 90 station: -1 Amniotic membrane status: Ruptured (clear fluid) Comments: VS 129/69 SpO2 99% HR 99 Temp 35.8 C Contractions Date/Time contractions began: 2910/24/22 Contractions on admission: irregular Monitor mode: External (admission strip and then intermittent monitoring until prepared for epidural) Pitocin rate (mU/min): 0 Contraction frequency (min): 3 Contraction duration (min): 1 Contraction pattern: Regular Contraction intensity: Moderate Status status: Category l Heart Rate Baseline: 110 Monitor Accelerations: Present Monitor Decelerations: Absent Monitor Variability: Moderate Assessment and Plan Assessment: active labor Plan: continuous present management
--- NOTE | 2022-10-24 14:34 | PM.OBPRVD ---
Events: Meconium Stained Fluid and Other (Elective IOL r/to PCS move this summer; PROM as vasques bulb came out) Labor & Delivery Delivery date: 10/24/22 Intrapartal Events: None Cervical ripening method: per Vasques bulb protocol Induction method: none Delivery monitor: external FHT Route of delivery: L&D Laceration Description: Periurethral - 1st Degree and Perineal - 1st Degree Quantitative Blood Loss: 324 Anesthesia Type: Epidural Narrative: Rowdy progressed well in labor without any augmentation, using hydrotherapy, nitrous oxide and finally an epidural for pain management. FHR was Category and 2 (5 tier green and blue) throughout labor and 2nd stage. She was found to be complete and +1 at 1215 after a nap. Directed pushing began at 1244. She pushed effectively in several positions, resulting in NSVB of baby girl in TETO position at 1355 over a first degree perineal laceration. Shoulders delivered easily. Meconium suspected shortly before delivery, but was not usual presentation; confirmed at delivery. Baby was vigorous and placed immediately on maternal abdomen for drying and stimulation. Apgars 9 and 9. No vaginal bleeding noted. No repair of tissue indicated. Placenta delivered easily with mild traction and trailing membranes resolved with maternal coughing. There was a small amount of bleeding noted with placental delivery but there was more contained in the membranes of the placenta. Mignon given placental tour; 3 vessel cord noted. QBL 324 mL. IM pitocin given per protocol for bleeding prophylaxis. Rowdy and Juan thrilled to meet their baby girl, Keiko. Mom and baby left with stable vital signs and baby beginining the breast crawl. Plan for normal care. weight 8#4oz. Baby 1: gender: Female Presentation: vertex Position: Right Occiput Anterior Placenta delivery description: Spontaneous Cord Vessel Description: 3 Vessels score (1 min): 9 score (5 min): 9 Plan for aftercare: Routine care
[2022-10-24] MEDS: DERMOPLAST SPRAY 20% 60 ML 1 SPRAY TOP (17:31)
[2022-10-24] MEDS: LANOLIN OINT 7 GM 1 APPLIC TOP (17:31)
[2022-10-24] MEDS: IBUPROFEN 600 MG TABLET PO (18:42)
[2022-10-24] MEDS: ACETAMINOPHEN 325 MG TABLET 975 MG PO (21:35)
[2022-10-25] MEDS: IBUPROFEN 600 MG TABLET PO ×2 (03:13→08:58)
[2022-10-25] MEDS: ACETAMINOPHEN 325 MG TABLET 975 MG PO (08:54)
--- NOTE | 2022-10-25 12:03 | P.DS_ITS ---
Discharge Providers Provider Date of admission: 10/24/22 03:18 Discharge Date: 10/25/22 Primary care physician: [facility] Alex Consults: 10/25/22 14:25 Consult to Coding Compliance Auditor Routine Comment: Discharge provider: Fern Abebe CNM, ARNP Summary Hospital Course Date Patient Seen: 10/25/22 Time Patient Seen: 08:30 Diagnoses: Term Normal bleeding 1st degree perineal laceration, unrepaired Hospital Course: Rowdy arrived in labor after vasques bulb placed for induction in clinic the evening prior. ROM occurred approx 0030 with vasques bulb coming out. No augmentation needed. Labor progressed normally, resulting in NSVB of vigorous baby girl. QBL 324. 1st degree perineal laceration not repaired. Stable vital signs. Peripartum Data Delivery Method: Natural Vaginal Laceration Description: Periurethral - 1st Degree and Perineal - 1st Degree Episiotomy description: None 1: Gender: Female Disposition of : home Discharge Diagnosis (1) Lactating mother: Status: Acute Status at Discharge Cognitive/behavioral status at discharge: at baseline, oriented Functional status at discharge: independent ambulation Overall status at discharge: patient is progressing back to baseline Time Spent with Patient Time attestation: Total time spent providing and/or coordinating discharge services: Objective Labs 10/24/22 04:35 Exam Vital Signs (past 8 hours): BP 99/82 HR 79 RR 16/min Temp 98 F temporal SpO2 99% Const General: comfortable Resp Effort & Inspection: normal respiratory effort and able to speak in complete sentences Other: U-1, firm Normal vaginal bleeding Skin General: no rashes or lesions noted Neuro General: patient oriented x3 and gait normal Extrem General: normal to inspection, full ROM and capillary refill normal Psych Appearance: grossly normal Mental Status: mental status grossly normal Discharge Plan Discharge Plan Patient Disposition: Home Discharge orders & Medications Prescriptions: Continued cholecalciferol (vitamin D3) 125 mcg (5,000 unit) capsule 125 mcg PO DAILY 1 mg Tablet PO loratadine 10 mg tablet 10 mg DAILY Probiotic 10 billion cell capsule 20,000 mmu cells DAILY Gaviscon 160-105 mg Tablet,Chewable PRN PRN (Reason: Gastric Reflux) Medication counseling provided by Pharmacist: No Follow up/Referrals: [facility] [Provider Group] (2 week and 6 week visits scheduled.) Gumaro Goldsmith ARNP [Primary Care Provider] - Diet/Activity/Treatments Diet: Diet as Tolerated and Regular Diet comment: focus on fiber and hydration Skin/Wound/Dressing Care Report to your healthcare provider any signs of infection, such as:: chills, fever, increased pain, unusual drainage and unusual redness Visit Report/Discharge Packet Stand Alone Forms: Discharge: Care, Patient Portal/API, Stroke Signs & Symptoms Discharge Data Primary Care Provider: Gumaro Goldsmith
== END 2022-10-25 14:05 | disposition home or self-care (01) | DRG 807 ==
PROVIDERS: Admitting Provider Advanced Practice Midwife; PCP Registered Nurse Diabetes Educator; Referring Provider Advanced Practice Midwife; Visit Provider Advanced Practice Midwife
DX: O99.824 Streptococcus B carrier state complicating childbirth (principal); Z37.0 Single live birth; Z3A.40 40 weeks gestation of pregnancy
CPT/HCPCS: 59050; 85025; 86850; 86900; 86901; G0379; J0290